=== PATIENT | male | born 1970 | race Caucasian/White ===

== ENCOUNTER 2021-05-23 11:00 | Emergency (ER) | payer SELFPAY ==
[2021-05-23] MEDS ORDERED: Proparacaine 0.5% Opth 15 ML BOT ONE (11:38)
[2021-05-23] MEDS ORDERED: Bupivacaine 0.5% 10 ML VIAL ONE (11:41)
== END 2021-05-23 14:20 | disposition home or self-care (01) ==
LOC: ERS 11:00
DX: S63.287A Dislocation of proximal interphalangeal joint of left little finger, initial encounter (principal); S66.107A Unspecified injury of flexor muscle, fascia and tendon of left little finger at wrist and hand level, initial encounter; E11.9 Type 2 diabetes mellitus without complications; I10 Essential (primary) hypertension; F17.210 Nicotine dependence, cigarettes, uncomplicated; W18.30XA Fall on same level, unspecified, initial encounter
CPT/HCPCS: 26770; J3490

== ENCOUNTER 2024-04-22 07:24 | Emergency (ER) | payer BC | END 2024-04-22 09:00 | disposition home or self-care (01) | LOC: ERS 07:24 | DX: S46.001A Unspecified injury of muscle(s) and tendon(s) of the rotator cuff of right shoulder, initial encounter (principal); E11.9 Type 2 diabetes mellitus without complications; I10 Essential (primary) hypertension; F17.210 Nicotine dependence, cigarettes, uncomplicated; Z55.6 Problems related to health literacy; W18.30XA Fall on same level, unspecified, initial encounter | CPT/HCPCS: 99283 ==

== ENCOUNTER 2024-11-22 13:15 | Outpatient (CLI) | payer BC | END 2024-11-22 13:16 | disposition home or self-care (01) | LOC: BICRAD 13:15 | PROVIDERS: ATTEND Family Medicine | DX: M79.601 Pain in right arm (principal) ==